=== PATIENT | male | born 1975 | race Caucasian/White ===

== ENCOUNTER 2016-04-24 19:03 | Emergency (ER) | payer SELFPAY ==
[2016-04-24 19:25] VITALS: BP 153/87; PULSE 81; TEMP 99; BMI 28.4
--- NOTE | 2016-04-24 19:32 | EDPRACDOC ---
- General Information Stated Complaint: RT FACIAL SWELLING Time Seen by Provider: 04/24/16 19:24 Information Source: Patient Home Medications: Home Medications Atenolol/Chlorthalidone [Atenolol-Chlorthal Tab (50mg/25mg)] 1 tab PO DAILY Metformin HCl 500 mg PO BID 06/02/15 Aspirin (Enteric Coated) [Ecotrin] 81 mg PO DAILY #30 tab 06/03/15 Omeprazole [Prilosec] 20 mg PO DAILY #30 cap 06/03/15 Amoxicillin Trihydrate [Amoxicillin] 500 mg PO TID #21 tab 04/24/16 Hydrocodone Bit/Acetaminophen [Lortab 5/325] 1 tab PO Q4-6H PRN #15 tab Allergies/Adverse Reactions: Allergies Allergy/AdvReac Type Severity Reaction Status Date / Time No Known Allergies Allergy Verified 06/02/15 18:52 - History of Present Illness Onset: 5 days HPI: Pt c/o R upper toothache with facial swelling 4-5 days. Denies fever, earache, sore throat. Pain Severity: Reports: Moderate Relevant History of: Reports: None Modifying Factors: improves with: Cold Associated Signs and Symptoms: Reports: None ED Past Medical History - History Reviewed Yes Nurses notes reviewed and agree except as marked - Patient Medical History Cardiac History: Reports: Hypertension Psychological History: Denies: Substance Use Disorder Systemic History: Reports: Diabetes (Type 2) - Family Medical History Reports: Cardiac Disorders - Social Medical History Smoking Status: Never smoker Social History: Denies: Substance Use Disorder ETOH: None Substance Abuse: None EDM Review of Systems - Review of Systems Constitutional: No Symptoms Reported. negative: Fever, Chills, Weakness, Fatigue, Loss of Appetite Ears: No Symptoms Reported. negative: Pain, Hearing Loss, Drainage, Ear Pulling Throat: No Symptoms Reported. negative: Pain, Swelling Nose: No Symptoms Reported. negative: Congestion, Bleeding, Discharge, Injection, Swelling, Deformity, Ecchymosis, Tender, Abrasion, Laceration Mouth: Tooth Pain Respiratory: No Symptoms Reported. negative: Cough, Brassy Cough, Barky Cough, Shortness of Breath, Wheezing, Hemoptysis Cardiovascular: No Symptoms Reported. negative: Chest Pain, Palpitations, Syncope, Edema, Orthopnea, PND, Skin Mottling, Cyanosis Gastrointestinal: No Symptoms Reported. negative: Pain, Constipation, Nausea, Vomiting, Diarrhea, Melena, Formula Intolerance Neurological: No Symptoms Reported. negative: Headache, Dizziness, Seizure, Numbness, Weakness, Speech Difficulty, Gait Difficulty Integumentary: No Symptoms Reported. negative: Bruising, Itching, Rash, Wound, Pressure Sore, Ulcers, Other Allergic/Immunologic: No Symptoms Reported. negative: Hives, Itching Hematologic: No Symptoms Reported. negative: Lymphadenopathy, Easy Bruising, Easy Bleeding Psychiatric: No Symptoms Reported. negative: Anxiety, Depression, Hallucinations, Insomnia, Suicidal - Physical Exam Constitutional: Alert (Awake) Oriented to: Time, Person, Place Last recorded Vital Signs: Last Vital Signs Temp 99.0 F 04/24/16 19:24 Pulse 81 04/24/16 19:24 Resp 18 04/24/16 19:24 BP 153/87 04/24/16 19:24 Pulse Ox 96 04/24/16 19:24 Oxygen Pulse Oxygen Saturation 96 O2 Device Room Air Oxygen Flow Rate Fraction of Inspired Oxygen ( FIO2) - HEENT Head: Normal ( normocephalic) Eye Exam: Normal (PERRL, EOMI, Sclera white) Oropharynx: Normal (Pharynx:Moist without exudate,Gums-no swelling) Tympanic Membrane: Normal ENT EAC: Normal TMJ: Normal Nose: No Symptoms Reported (septum midline) Neck: Normal (FROM, trachea at midline) - Respiratory/Cardiovascular Respiratory: Normal - CTA (BBS clear to auscultation without adventitious sounds ) Cardiovascular: Normal (RRR without murmur, gallop or rub) - Integumentary Skin: Normal, Warm, Dry Lymphatics: Normal (no adenopathy) - Neurologic Memory Impaired: Normal Motor Function: Normal (Normal tone, Pulses 2+ No cyanosis or edema, FROM) Mood Description: Normal Perception: Normal ED Tooth Problem Exam - HEENT Face: Swelling (R) Teeth: Right: Bicuspid Upper (caries), Premolar Upper (caries) Gingiva: Red Palate: Normal Mouth Range of Motion: Normal Sinuses: Normal Oropharynx: Normal Neck: Normal - Differential Diagnosis Periapical Abscess, Periodontal Abscess Decision Time to Discharge: 19:31 - Departure Disposition: Home Condition: Good Final Diagnosis: Dental abscess, Dental caries Instructions: Dental Abscess (ED), Dental Caries (ED) Education/Counseling Given To: Patient Education/Counseling Given Regarding: Diagnosis, Treatment, Follow Up Referrals: None,No Provider [Primary Care Provider] - One Week Ermias Mott MD [Staff Physician] - One Week Prescriptions: Amoxicillin Trihydrate [Amoxicillin] 500 mg PO TID #21 tab Hydrocodone Bit/Acetaminophen [Lortab 5/325] 1 tab PO Q4-6H PRN #15 tab PRN Reason: Pain Additional Instructions: You must follow up with a dentist as soon as possible, you may contact the [facility] at [phone] for assistance.
== END 2016-04-24 19:52 | disposition home or self-care (01) ==
LOC: EDMC 19:03
DX: K04.7 Periapical abscess without sinus (principal); K02.9 Dental caries, unspecified; I10 Essential (primary) hypertension; E11.9 Type 2 diabetes mellitus without complications; Z79.899 Other long term (current) drug therapy
CPT/HCPCS: 99282